=== PATIENT | female | born 1995 | race Caucasian/White ===

== ENCOUNTER 2018-03-02 22:21 | Inpatient (IN) | payer OTHER ==
--- NOTE | 2018-03-02 22:57 | EDPHY ---
H & P Stated Complaint: si etoh - Personal History LMP (Females 10-55): Extended Cycle BCP/Inj Current Tetanus/Diphtheria Vaccine: Yes Current Tetanus Diphtheria and Acellular Pertussis (TDAP): Yes - Medical/Surgical History Hx Asthma: No Hx Chronic Respiratory Disease: No Hx Diabetes: No Hx Cardiac Disease: No Hx Renal Disease: No Hx Cirrhosis: No Hx Alcoholism: No Hx HIV/AIDS: No Hx Splenectomy or Spleen Trauma: No Other PMH: Denies pmh or psh - Social History Smoking Status: Never smoked Time Seen by Provider: 03/02/18 22:32 HPI/ROS: Chief Complaint: Suicidal HPI: 22-year-old woman history depressions presenting intoxicated with suicidal ideation. Patient has a desire to shoot herself. She has a family history of her brother committing suicide 5 years ago. She does not have suicide attempts in the past. She does take Zoloft daily. Admits to drinking several margaritas tonight. Patient states she felt suicidal before she started drinking alcohol. ROS: 10 systems were reviewed and were negative except those elements noted in the HPI. PMH: Depression Social History: No smoking, occasional alcohol, no recreational drug use Family History: non-contributory Physical Exam: Gen: Awake, Alert, No Distress, slurred speech, smells of alcohol HEENT: Nose: no rhinorrhea Eyes: PERRLA, EOMI Mouth: Moist mucosa Neck: Supple, no JVD Chest: nontender, lungs clear to auscultation Heart: S1, S2 normal, no murmur Abd: Soft, non-tender, no guarding Back: no CVA tenderness, no midline tenderness Ext: no edema, non-tender Skin: no rash Neuro: CN II-XII intact, Sensation grossly intact, Strength 5/5 in bilateral upper and lower extremities (Ashok Fernandes) Constitutional: Initial Vital Signs Temperature (C) 37.1 C 03/02/18 22:26 Heart Rate 140 H 03/02/18 22:26 Respiratory Rate 18 03/02/18 22:26 Blood Pressure 149/98 H 03/02/18 22:26 O2 Sat (%) 93 03/02/18 22:26 O2 Delivery Mode Room Air Allergies/Adverse Reactions: No Known Allergies Allergy (Verified 03/02/18 22:25) Home Medications: Medication Instructions Recorded Sertraline HCl [Zoloft 50mg (*)] 50 mg PO DAILY 03/03/18 Medical Decision Making ED Course/Re-evaluation: 22-year-old suicidal patient. Significant alcohol level. Will need sober evaluation in the morning. Patient is otherwise medically cleared. [address] patient [address] out to Dr. Smyth pending sober mental health evaluation. No issues during my care this patient overnight. (Ashok Fernandes) Other Provider: Care assumed at 6:38 a.m. For this patient with suicidal ideation who presents with acute alcohol intoxication. Mental health evaluation was completed and decision for psychiatric admission was made. The patient will be transferred to [facility] for inpatient psychiatric hospital bed not available at this facility, in stable condition; accepting physician is Dr. Elizondo. EMTALA form completed. (Tate Smyth) - Data Points Laboratory Results: Laboratory Results 03/02/18 22:48 03/02/18 22:48 Medications Given: Discontinued Medications Sodium Chloride (Ns) 1,000 mls @ 0 mls/hr IV EDNOW ONE; Wide Open PRN Reason: Protocol Stop: 03/02/18 23:28 Last Admin: 03/02/18 23:27 Dose: 1,000 mls Lorazepam (Ativan) 1 mg PO EDNOW ONE Stop: 03/03/18 14:20 Last Admin: 03/03/18 14:22 Dose: 1 mg Departure - Departure Disposition: [facility] IP Clinical Impression: Suicidal ideation Alcohol intoxication Qualifiers: Complication of substance-induced condition: uncomplicated Qualified Code(s): F10.920 - Alcohol use, unspecified with intoxication, uncomplicated Condition: Good Referrals: Orlando Marin MD [Primary Care Provider] - As per Instructions
[2018-03-02 23:06] LABS: PLATELET COUNT 337 10^3/uL (150-400)
[2018-03-02] MEDS ORDERED: NS 1,000 ML IV ONE (23:27)
--- NOTE | 2018-03-03 13:49 | ASMTTCLDSP ---
TLC Discharge Disposition Disposition: Answers: Admit Disposition Notes: Notes: P to be admitted to [address] Discharge Concerns/Recommendations: Notes: In consultation with ED MD, Dr Tate Smyth and on-call psychiatrist, Delvin Elizondo MD pt appears to meet the 27-65 criteria for in-pt psychiatric history as pt appears to be a danger to self. Was patient given the Answers: Yes Inpatient Behavioral Health Prohibited Belongings List while in the ED? For inpatient Delvin Elizondo MD admission, the following psychiatrist agreed to accept patient for admission to Behavioral Health ([facility]): Date Signed: 03/03/2018 01:48 PM Electronically Signed By:Hanna Thrasher
[2018-03-03] MEDS ORDERED: LORazepam 1 MG TAB PO ONE (14:19)
[2018-03-03] MEDS ORDERED: ACETAMINOPHEN 325 MG TAB PO PRN (16:03)
[2018-03-03] MEDS ORDERED: NICOTINE POLACRILEX 2 MG GUM B PRN (16:03)
[2018-03-03] MEDS ORDERED: OLANZapine DISINTEGR 5 MG TAB PO PRN (16:03)
[2018-03-03] MEDS ORDERED: THIAMINE HCL 100 MG TAB PO ONE (16:04)
[2018-03-03] MEDS ORDERED: MAGNESIUM HYDROXIDE 30 ML UDCUP PO PRN (16:04)
[2018-03-03] MEDS ORDERED: PROMETHAZINE HCL 25 MG SUPPR PR PRN (16:04)
[2018-03-03] MEDS ORDERED: MAG HYDROX/AL HYDROX/SIMETH 30 ML UDCUP PO PRN (16:04)
[2018-03-03] MEDS ORDERED: PROMETHAZINE HCL 25 MG TAB PO PRN (16:04)
[2018-03-03] MEDS ORDERED: chlordiazePOXIDE 25 MG CAP PO PRN (16:04)
--- NOTE | 2018-03-03 16:27 | ASMTTLCEVL ---
TLC Evaluation - Basic Information Evaluation Start Date and 03/03/2018 11:30 AM Time Hospital Status Answers: M1 Hold 72-hr M1 Hold Start Date 03/02/2018 10:55 PM and Time Patient statement Notes: "I got drunk with my friends last night , my mother called and I blurted out mishel tI wanted to - I have been feeling a bit depressed and anxious and haven't really told anyone." Narrative Notes: Pt is a 22 y/o, , single [employer] female who was brought to the ED by her mother after saying that she felt suicidal and thought about killing herself with a gun. (Pt luciano not have access to gun) Her bal was .418 at the time of admission. Pt currently denies suicidal, parasuicidal or homiidal ideation, urges or behaviors though she says she has intermittent suicidal ideation but has no intention of acting on her thoughts. She denies auditory, visual hallucinations or delusions. In speaking with pt's mother she does minimize her drinking - she reports a glass of wine a day since turning 21 but has been drinking much more than that and lying to her mother. She sees a therapist as needed - Jimmy Marcelino who she has been seeing on and off for 5 years. Her PMD prescribed zoloft this past October which pt reports as helping but mother reports that she does not think that pt takes it regularly. Pt denies any other substance use. She has been thinking about her brother who by suiicide at age 22 - 5 yrs ago. Diagnosis History Notes: Pt does not know a specific diagnosis but does report feeling depressed - increased sleep, lack of energy, poor concentration and passive thoughts about suicide. In addition pt's drinking history according to mothr and last night also indicates a possible Alcohol Disorder. Prior suicide attempts Notes: Pt denies Prior hospitalizations Notes: Pt denies Treatment Responses Notes: Pt reports that zoloft and therapy help but she admits to not being totally honest with therapist regarding how she feels. History of violence Notes: None Therapist: Jimmy Marcelino Medications (name, dosage, route, freq uency) Notes: Zoloft Allergies/Reaction Notes: Pt denies Sleep Notes: Pt has been sleeping 12-13 hours per night Appetite Notes: Appetite is "okay" Medical/Surgical history Notes: Pt fractured her L4-5 vertebrae in early adolescence. 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 No other illness reported Substance use history (frequency, intensity, his tory, duration) Notes: Pt reports no substance use but has been "drinking a glass of wine daily since she turned 21. Moth believes she is greatly minimizing amount of alcohol use. Family composition Notes: Parents are alive and retired - live in [place] and [place] Family psychiatric/substance abuse history Notes: Parents are well. Her 22 y/o brothr by suicide 5 yrs ago (gun). Her parents were both adopted so no furthe history is known. Developmental history Notes: Pt grew up in [place] with lder brother and parents. She did well in school and had friends and was active, especially with figure skating. She attended [employer] ([place] for and did well. Was active in [employer] and [employer] and had friends. 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 Work history Notes: NA Notes: NA Legal Notes: NA Christianity/Spiritual Notes: NA Leisure Notes: Netflix,spending time with friends Patient's strengths Answers: Athletic (Please select at least TWO strengths): Intelligent Motivated for Treatment Responsible/Dependable Supportive Family Willingness TLC Evaluation - Mental Status Exam Appearance: Answers: Appropriate Neat Eye Contact: Answers: Good/Direct Affect: Answers: Calm Cheerful Behavior: Answers: Appropriate Cooperative Speech: Answers: Relevant Logical Clear Thought Process: Answers: Organized Oriented Alert Insight: Answers: Poor Judgement: Answers: Fair Depression Answers: Difficulty Concentrating Signs/Symptoms: Diminished Interest Sad Mood Hallucinations: Answers: None Current Stage of Change Answers: Precontemplation Pt reported to have Answers: No suicidal/self-injuring ideation/behavior? Pt reported to have Answers: No aggression/assault ideation/behavior? Pt reported to be making Answers: No aggression/assault threats? Pt exhibits inability to Answers: No care for self/grave disability? Patient has a specific Answers: Yes plan? Pt has access to means to Answers: No execute the plan? Ideation involves Answers: Yes serious/lethal intent? Ideation has Answers: No delusional/hallucinatory content? History of Answers: No suicidal/self-injuring ideation, behavior, or threats? History of Answers: No aggressive/assaultive ideation, behavior, or threats? History of serious Answers: No physical harm to self/others while in treatment setting? TLC Evaluation - Suicide/Homicide Risk Suicide Risk Factors: Answers: Alcohol/Heavy Drug Use Hx of Suicide Attempt by Family Member Major Depression Recent of [employer] School Difficulties Single Homicide/violence risk Answers: None factors: Current Suicidal Answers: No Ideation? Current Suicide Ideation Intermittent - passive SI Frequency: Current Suicidal Ideation Answers: Yes in the Past 48 Hours? Suicide Internal Answers: Absence of Psychosis Protective Factors: Frustration Tolerance Darren with Stress Suicide External Answers: Positive Therapeutic Protective Factors: Relationships Social Support Ranking of patient's Answers: Moderate suicidal risk: TLC Evaluation - Wrap-up BDI Total Score: 31 BDI Question #2 Score: 1 BDI Question #9 Score: 1 BSS Total Score: 12 AXIS I Diagnosis (include DSM-V and ICD-10 codes), must also be entered in [employer], which is the source of truth. Notes: 296.22 (F32.1) Major Depressive Disorder, Single Epsiode, Moderate 303.90 (F10.20) Alcohol Disordr, Moderate Evaluation End Date and 03/03/2018 01:30 PM Time (HH:MM): Date Signed: 03/03/2018 04:26 PM Electronically Signed By:Hanna Thrasher
--- NOTE | 2018-03-04 08:41 | ASMTBHMTP ---
Master Treatment Plan Master Treatment Plan Answers: Depressed Mood with for: Suicidal Ideation Date: 03/03/2018 Diagnosis on Admission: Major Depressive Disorder, Single Epsiode, Moderate 296.22 (F32.1) Expected length of stay: 3-5 days Reason for admission: Notes: Per Report: Pt is a 22 y/o, , single [employer] female who was brought to the ED by her mother after saying that she felt suicidal and thought about killing herself with a gun. (Pt luciano not have access to gun) Her bal was .418 at the time of admission. Pt currently denies suicidal, parasuicidal or homiidal ideation, urges or behaviors though she says she has intermittent suicidal ideation but has no intention of acting on her thoughts. She denies auditory, visual hallucinations or delusions. In speaking with pt's mother she does minimize her drinking - she reports a glass of wine a day since turning 21 but has been drinking much more than that and lying to her mother. She sees a therapist as needed - Jimmy Marcelino who she has been seeing on and off for 5 years. Her PMD prescribed zoloft this past October which pt reports as helping but mother reports that she does not think that pt takes it regularly. Pt denies any other substance use. She has been thinking about her brother who by suiicide at age 22 - 5 yrs ago. Patient's stated presenting problems: Notes: Depression and Anxiety Patient's goals for treatment: Notes: to learn to be self-aware, and better ways of coping with anxiety and depression. Patient's strengths: Notes: smart Identify supports outside of hospital: Notes: Yes, my family Discharge criteria: Notes: Suicidal Ideation will resolve and patient will have a plan to safely manage recurrent suicidal ideation. Initial disposition plan/considerations: Notes: Move in back with my parents. Master Treatment Plan Required Signatures Psychiatrist signature: Answers: Psychiatrist: RN on-shift signature: Answers: RN: Patient signature: Answers: Patient: Date Signed: 03/04/2018 08:40 AM Electronically Signed By:Jan Sanchez
--- NOTE | 2018-03-04 09:19 | GCON ---
DATE OF CONSULTATION: 03/04/2018 The patient is a 22-year-old female with a history of depression, who presented to the ER last cristofer with suicidality in the setting of alcohol intoxication. She was feeling suicidal prior to that. She has a history of depression and takes Zoloft, but has not had previous presentations for suicidal ity. Her brother did kill himself 5 years ago. Her plan was to use a gun, although she does not hav e one at home. She notes that in November after following a bad break-up she had loss of appetite and lost about 15 p ounds. REVIEW OF SYSTEMS: A 10-point review of systems was conducted and negative as noted in the HPI. PAST MEDICAL HISTORY: She had some what sounds like spine stress fractures in the setting of competi tive figure skating. ALLERGIES: No known drug allergies. MEDICATIONS: Zoloft. FAMILY HISTORY: Notable for suicidality. SOCIAL HISTORY: She acknowledges drinking too much alcohol. She does not smoke cigarettes or use dr ugs with a needle. PHYSICAL EXAM: PRESENTING VITAL SIGNS: Temperature 37.1, blood pressure 149/98, pulse 140, breathin g 18 times a minute, 98% on room air. Pulse is now in the 60s. GENERAL: No acute distress. Sclera e anicteric. Oropharynx clear. Mucous membranes moist. NECK: Supple without lymphadenopathy or JV D. LUNGS: Clear to auscultation bilaterally. HEART: S1, S2. ABDOMEN: Soft, nontender, nondisten ded. LOWER EXTREMITIES: No edema. Calves nontender. SKIN: Without rash. NEUROLOGIC: Exam is no nfocal. LABS: Tox screen is negative. Ethanol level is 418. Sodium 143, potassium 4.2, chloride 107, bicar b 21, BUN 9, creatinine 0.7, glucose 149. LFTs normal other than a slightly elevated AST at 47, chol esterol elevated at 242. Beta HCG is negative. There is no TSH. A1c is pending. White count 8.8, hematocrit 45, platelets are 337,000. There is no imaging. I discussed the case with Dr. Tate Smyth. ASSESSMENT AND PLAN: This is a 22-year-old female with suicidality. 1. Suicidality. Management per Behavioral Health. 2. Tachycardia. This is in the setting of presenting to the emergency department with suicidality a nd has resolved without intervention. Recommend no further workup. 3. Elevated liver tests. She has a slightly elevated AST with otherwise normal liver tests. This m ay be the setting of alcohol. Would not follow this as not contributing to her current presentation. 4. Disposition per Behavioral Health. Thank you for this consultation. Hospital Medicine will not follow. Please call for questions. /[id number]/MODL
[2018-03-04] MEDS: MULTIVITAMINS 1 EACH TAB PO SCH (09:22)
[2018-03-04] MEDS: SERTRALINE HCL 50 MG TAB PO SCH (09:22)
[2018-03-04] MEDS: FOLIC ACID 1 MG TAB PO SCH (09:22)
[2018-03-04] MEDS: THIAMINE HCL 100 MG TAB PO SCH (09:22)
--- NOTE | 2018-03-04 10:10 | BAPA ---
DATE OF SERVICE: 03/04/2018 CHIEF COMPLAINT: "I am here because of anxiety and depression. I drank heavily on Sunday and told best jaja friend that I just wanted to ." HISTORY OF PRESENT ILLNESS: From the ED note dated 03/02/18, patient presented to the emergency room with suicidal ideation. Patient reported desire to shoot herself. Patient has a family history of her brother committing suicide 5 years ago. Patient was admitted involuntarily and is on an M1 hold due to being a danger to herself, and is hospitalized for safety, crisis stabilization , and medication evaluation. Patient describes to this HEMATOLOGY TECHNOLOGIST circumstances that led to current hospitalization as increased school stress and thinking about her older brother who committed suicide 5 years ago at age 22. Patient is currently age 22 years. Patient reports to this HEMATOLOGY TECHNOLOGIST current mental health illness as anxiety. Patient reports drinking alcohol prior to presenting to the emergency room. Patient describes this HEMATOLOGY TECHNOLOGIST current psychiatric symptoms as "feeling lost and confused on what to do." Patient describes depression symptoms, including depressed mood, diminished interest and pleasure in activity she typically enjoys. Patient reports she typically enjoys working out and going out with her friends and reports she has not been engaging in these activities lately. Patient reports poor appetite, fatigue, low energy, feelings of hopelessness, and recent suicidal ideation. Patient reports anxiety symptoms including excessive anxiety occurring more days than not. States she finds it difficult to control her worry. Reports feeling restless and keyed up, easily on edge, difficulty concentrating. Patient reports no history of abuse. Patient denies other psychiatric symptoms including symptoms of darell, ADHD, OCD, PTSD, psychosis, and any other symptom of psychiatric disorder. The patient describes to this HEMATOLOGY TECHNOLOGIST current psychiatric symptoms are impacting managing her day-to-day life, described as addressing household responsibilities without difficulty. 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 Patient reports she is currently not socializing, avoiding going out with friends and reports she just wants to stay at home and be in bed. Patient reports she typically enjoys going out with her friends, but has been avoiding this activity. Patient reports she gets along with her family "for the most part." Patient reports her grades have dropped this semester. Reports having 2 D's and 1 F, and reports she was doing well prior to this. Patient reports she does enjoy working out in spin classes, but has recently not been engaged in these activities. With regard to whether patient is generally satisfied with her life, patient states, "for the most part." Patient denies current suicidal ideation. Reports last suicidal ideation was Sunday night. Patient reports protective factors or reasons to live as friends and parents. Patient reports a future goal as to be an major account manager for a [employer]. Patient reports her main support as her parents. Patient denies current homicidal ideation and denies current self-injurious ideation. Patient reports she currently has her medications managed by her primary care provider, Dr. Marin in [place], [place]. Patient reports she also sees therapist Jimmy Marcelino. PAST PSYCHIATRIC HISTORY: The patient describes to this HEMATOLOGY TECHNOLOGIST the following psychiatric history: Patient reports a past diagnosis of anxiety. Reports most recently on Zoloft 50 mg p.o. q. day. Patient reports she started out at 25 mg in October of this year, was titrated to 50 mg, and patient reports she has not taken this medication since December. Patient states she feels like the medication did help with anxiety. Patient reports she has never been hospitalized for inpatient psychiatric treatment. With regard to alcohol withdrawal, patient states she usually gets "the shakes" at 3 p.m. Patient denies history of suicide attempt. Patient reports history of cutting twice in high school. ALLERGIES: No known allergies. CURRENT MEDICATIONS: 1. Sertraline 50 mg p.o. q. day. 2. CIMA protocol medications including thiamin, vitamin B1, Phenergan, and Librium 25 to 50 mg p.o. q.4 hours p.r.n. PAST MEDICAL HISTORY: The patient describes to this HEMATOLOGY TECHNOLOGIST the following. Patient reports she has no reason to believe she could be , is currently on control, Nexplanon. Patient's urine test at time of admission is negative. Patient reports no history of brain disease, traumatic brain injury, or concussions. Patient reports no history of major illnesses or major hospitalizations. SOCIAL HISTORY: The patient describes to this HEMATOLOGY TECHNOLOGIST the following social history. Patient reports she was born in [place], [place], raised the majority of her life in [place], [place], by both parents. Patient reports she currently lives in [place], [place], with 5 roommates and states she plans to move in with her parents soon. Patient reports meeting all her developmental milestones. Reports no history of learning delays or difficulties. Patient describes her sexual orientation as heterosexual. Patient reports she is currently not in a relationship, has never been , and has no children. 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 Patient reports her highest level of education as she is currently a senior at [employer]. Patient denies any history of duty. Patient reports no baptist or spiritual practice. Patient reports no current or history of legal charges or issues. SUBSTANCE USE HISTORY: The patient describes to this HEMATOLOGY TECHNOLOGIST the following substance use history. Patient reports she drinks every day, drinks 2 glasses of wine a night during the week, and reports that on through Sunday she drinks at least a bottle of wine plus mixed drinks while at the bar, and reports drinking approximately 7 to 8 drinks during these nights. Patient reports she uses Adderall "occasionally around ." FAMILY PSYCHIATRIC HISTORY: The patient describes to this HEMATOLOGY TECHNOLOGIST the following family psychiatric history. Patient reports she is unsure of family history of mental illness. Patient reports her brother completed suicide at age 22 five years ago. Patient reports no family history of substance use. ADMISSION LABS AND STUDIES: 1. CBC within normal limits except lymphocytes were elevated at 46.1, eosinophils were low at 0.3, absolute lymphocytes were elevated at 4.052. 2. BMP within normal limits except carbon dioxide was low at 21, anion gap was elevated at 15, and glucose was elevated at 149. 3. Hemoglobin A1c is pending. 4. Liver function within normal limits except AST was elevated at 47. 5. Lipid panel within normal limits except cholesterol was elevated at 242, HDL cholesterol was elevated at 150, LDL/HDL ratio was low at 0.50. 6. Beta HCG qualitative test negative. 7. Toxicology screen negative for all substances screened. Ethyl alcohol level was 418. MENTAL STATUS EXAM: The patient is a well-nourished female looking stated chronological age. Attire is appropriate. Dress is casual, neat and clean. Grooming status is appropriate, neat and clean. Ambulation is independent. Gait is normal and coordinated. Posture is normal and relaxed. Eye contact is appropriate and adequate. Motor activity is appropriate, with purposeful, organized, coordinated movements, with no involuntary movements noted. Attitude is cooperative and friendly. Patient appears attentive, and relates well to this interviewer. Language production is spontaneous. Rate, rhythm, and volume are normal. Articulation is clear. Patient reports mood as "okay," with adequately ranged and congruent affect. Patient's thought process is linear and logical, with no loose associations, tangential thought, thought blocking, concrete thinking, or any other signs of formal thought disorder. Patient does not report suicidal or homicidal thoughts, ideas, or plans. Patient denies auditory or visual hallucinations. Patient denies delusions. Patient does not appear to be attending to internal stimuli. Patient is oriented to person, place, time, and situation. The patient's attention and concentration are adequate. The patient's insight and judgment are poor. There is no evidence of gross cognitive dysfunction at any point during the interview, and no evidence of apparent dysfunction in recent or remote memory noted. The patient does not report undesirable side effects from the current medications. DIAGNOSES: Based on the patient's history and current presentation, patient's diagnoses are: 1. Major depressive disorder, severe, with anxious distress. 2. Alcohol use disorder, severe. 3. Alcohol use binge drinking. 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, living in [place], [place], who presents to the hospital involuntarily due to a risk to harm herself and is currently on an M1 hold. Patient requires continued inpatient care because of current depression and recent suicidal ideation with plan to attempt by gun. Patient presents with problems of increased depression and anxiety that have steadily been increasing over the past several months. Patient's life has been affected by these problems, including the crisis that led to this hospitalization with suicidal ideation with plan. The exacerbation of symptoms was preceded by increased school stressors and patient thinking about the loss of her brother who completed suicide 5 years ago at the age of 22. Patient has a past psychiatric history of anxiety that was treated with Zoloft 50 mg p.o. q. day and patient reports response to that treatment was fair. Patient reports stopping Zoloft in December. Patient reports she stopped Zoloft because she felt like she was doing better. Patient reported no side effects from Zoloft. Patient is a high suicide safety risk due to recent suicidal ideation with plan. Protective factors while hospitalized include ongoing safety checks, active involvement in treatment, and support from our treatment team. Patient could benefit from inpatient hospitalization for safety , crisis stabilization, and medication evaluation. PLAN: 1. Psychotropic medications: After reviewing options, risks, and benefits with the patient, patient agrees to continue current medications. No other medication changes at this time as more time is needed to determine ongoing tolerability and efficacy. Plan is to continue to observe patient for response and side effects from medications, and ongoing monitoring and evaluation. 2. Review with patient informed consent and recommendations for psychotropic medication treatment listed below 3. Labs: no additional labs at this time 4. Therapy: continue milieu and group therapy 5. Further investigation including gathering information from patients relatives and review of past case records to inform treatment plan. 6. Safety/Wellness plan and follow-up outpatient appointments to be established prior to discharge. Next steps are for patient to meet with wound care center consultant to plan a safe discharge plan and establish outpatient services for ongoing treatment. 7. Confer with inpatient treatment team regarding treatment plan. 8. Address psychosocial stressors by meeting with pet care attendant to establish discharge plan including referrals for outpatient services. 9. Legal status: M1 10. Consider discharge on Sunday if patient is in stable condition, safe, and has a safe discharge plan. 11. Substance abuse interventions: ESTIMATED LENGTH OF STAY: 1-3 days PSYCHOTROPIC MEDICATION TREATMENT INFORMED CONSENT and RECOMMENDATIONS: Review nature of condition, diagnosis, and prognosis. Review nature and purpose of psychotropic medication treatment. Review type of psychotropic medications being ordered. Review risk and benefits of psychotropic medication treatment. Review probable length of time will need to take medications. Review risk and benefits of not undergoing psychotropic medication treatment. Review alternative treatments to psychotropic medications. Review psychotropic medications contraindications, drug-drug interactions, side effects, and importance of reporting any side effects to a psychiatric provider or nurse during inpatient hospitalization, and upon discharge to patients psychiatric outpatient provider, primary care provider, or other health child caregiver private home. Review importance of asking a nurse, psychiatric provider, or primary care provider any questions or problems concerning the psychotropic medications. Verify patient understands the information that has been provided, and understands, accepts, and agrees to psychotropic medications. Review patients safety plan and importance of patient to communicate to staff while hospitalized if patient is ever a danger to self/others, or unable to care for self, and upon discharge, the importance for patient to contact [facility] or [facility], or go to the nearest emergency room, if patient is ever a danger to self/others, or unable to care for self. Recommend that upon discharge patient establish medication management treatment with a psychiatric provider, establishes routine therapy appointments, and follow-up with primary care provider. Verify patient understands and agrees to these recommendations. /[id number]/MODL MTDD
--- NOTE | 2018-03-04 11:29 | ASMTCMCOM ---
CM Note CM Note Notes: CC reached out for follow up appts for client, waiting to hear back. Clt was able to attend treatment rounds today. Client is aware of mental health issues; however, minimizes any Alcohol issue or problem. Provided client with additional resources, ,etc. Client presents alert, affect is appropriate towards situation. Date Signed: 03/04/2018 11:28 AM Electronically Signed By:Jan Sanchez
[2018-03-04] MEDS ORDERED: BISMUTH SUBSALICYLATE 524 MG/30 ML UDL PO PRN (13:18)
[2018-03-04] MEDS: IBUPROFEN 200 MG TAB PO PRN (14:47)
--- NOTE | 2018-03-05 08:44 | SOAPPROG ---
SOAP Progress Note Assessment/Plan: Assessment: Major Depressive Disorder, Severe, with Anxious Distress. Alcohol Use Disorder , Severe. Binge Drinking. Improvement noted. (see subjective/objective note). Patient could benefit from continued inpatient hospitalization for crisis stabilization, safety, and medication evaluation. Consider discharge tomorrow if patient is stable and has a safe discharge plan. Plan: 1. Psychotropic medications: After reviewing options, risks, and benefits patient agrees to continue current medications. No medication changes at this time as more time is needed to determine ongoing tolerability and efficacy. Plan is to continue to observe patient for response and side effects from medications, and ongoing monitoring and evaluation. 2. Review with patient informed consent and recommendations for psychotropic medication treatment listed below 3. Labs: no additional labs at this time 4. Therapy: continue milieu and group therapy 5. Further investigation including gathering information from patients relatives and review of past case records to inform treatment plan. 6. Safety/Wellness plan and follow-up outpatient appointments to be established prior to discharge. Next steps are for patient to meet with home care coordinator to plan a safe discharge plan and establish outpatient services for ongoing treatment. 7. Confer with inpatient treatment team regarding treatment plan. 8. Psychosocial stressors addressed through case maker 9. Legal status: M1 10. Consider discharge on Sunday if patient is in stable condition, safe, and has a safe discharge plan. 11. Substance abuse interventions: alcohol PSYCHOTROPIC MEDICATION TREATMENT INFORMED CONSENT and RECOMMENDATIONS: Review nature of condition, diagnosis, and prognosis. Review nature and purpose of psychotropic medication treatment. Review type of psychotropic medications being ordered. Review risk and benefits of psychotropic medication treatment. Review probable length of time patient will need to take medications. Review risk and benefits of not undergoing psychotropic medication treatment. Review alternative treatments to psychotropic medications. Review psychotropic medications contraindications, drug-drug interactions, side effects, and importance of reporting any side effects to a psychiatric provider or nurse during inpatient hospitalization, and upon discharge to patients psychiatric outpatient provider, primary care provider, or other health zoo caretaker. Review importance of asking a nurse, psychiatric provider, or primary care provider any questions or problems concerning the psychotropic medications. Verify patient understands the information that has been provided, and understands, accepts, and agrees to psychotropic medications. Review patients safety plan and importance of patient to report to staff while hospitalized if patient is ever a danger to self/others, or unable to care for self, and upon discharge, the importance for patient to contact [facility] or 911, or go to the nearest emergency room, if patient is ever a danger to self/others, or unable to care for self. Recommend that upon discharge patient establish medication management treatment with a psychiatric provider, establishes routine therapy appointments, and follow-up with primary care provider. Verify patient understands and agrees to these recommendations. 03/05/18 08:44 Subjective: Following up with patient for evaluation of depression, anxiety, and safety. Patient reports, "Going pretty good. Better than before. My mom got me the AA book. She is going with me to an AA meeting after I discharge." Patient expresses the following psychiatric symptoms a little anxious. Patient reports taking medications as prescribed, and describes response to medications as fair. Patient does not report undesirable side effects from the medications, and agrees to continue current medications. Patient describes getting 8 hours of sleep, and reports feeling rested. Objective: Vital Signs Temp Pulse Resp BP Pulse Ox 36.9 C 74 17 118/74 96 03/04/18 12:00 03/04/18 19:40 03/04/18 19:40 03/04/18 19:40 03/04/18 19:40 NURSING REPORT: Consulted with nursing for update on patients progress in treatment. Nurses report patient is engaged in treatment, is attending groups, slept 8 hours, expresses the following psychiatric symptoms: anxious, exhibits the following psychiatric symptoms: none, is not eating all meals, is agreeable to medications and taking as prescribed with no report of side effects, with no s/s of EPS/akathisia, and denies SI/HI, denies A/V hallucinations, and denies delusions. MSE: The patient presents casually dressed and with good hygiene, and looks stated age. Patient is sitting, posture is upright, and position is relaxed. Patient appears awake, alert, and responds appropriately and reasonably during interview. Patient is engaged, relates well to interviewer, and emotional facial expression is appropriate to situation and changes appropriately with topic. Patient is cooperative, makes comfortable eye contact, and movements are voluntary, deliberate, coordinated, and smooth and even with no inappropriate movements. Patient makes laryngeal sounds effortlessly and shares conversation appropriately; pace of conversation is appropriate, and stream of talking is fluent; articulation is clear and understandable; word choice is effortless and appropriate for education level; completes sentences, occasionally pausing to think; rate and volume are appropriate for interview and setting. Patient reports mood as anxious. Patients affect is stable with full variable range, congruent with mood, and appropriate to speech and circumstances. Patient has linear and logical thinking, with no loose associations, tangential thought, thought blocking, concrete thinking, or any other signs of formal thought disorder. Patient denies suicidal and homicidal ideation, and denies hallucinations and delusions. Patient appears to be a reliable historian with sound judgement and good insight into current condition. Patient has no apparent dysfunction in recent or remote memory noted , and no evidence of gross cognitive dysfunction noted at any point during the interview. SUBSTANCE ABUSE BRIEF INTERVENTION: Brief intervention regarding the risks of alcohol abuse is provided to patient with goal to reduce the risk of harm that could result from the continued use of alcohol, with the general aim to investigate the problem, raise awareness of problem, develop a solution with the patient, recommend a specific change or activity, and motivate the patient toward change. Assess substance abuse behavior and give supportive advice about harm reduction, recommend a reduction in hazardous/at-risk consumption patterns, and facilitate referrals for additional specialized treatment with skin care technician. Intermediate goal is for the patient to quit and attend outpatient substance abuse treatment. Intervention focus on intermediate goals to allow for more immediate success in the treatment process to keep the patient motivated. Review following with patient: Alcohol/Binge Drinking Risks : Short-term: injuries, violence, alcohol poisoning, risky sexual behaviors. Long-term: high blood pressure, stroke, liver disease, digestive problems, cancer, learning and memory problems, depression and anxiety, social problems, and alcohol dependence. OUTPATIENT SUBSTANCE ABUSE TREATMENT: Patient referred to outpatient provider and treatment for continued treatment related to substance abuse. - Time Spent With Patient Time Spent With Patient: 15 minutes, met with patient individually. - Pending Discharge Pending Discharge Within 24 Hours: Yes Pending Discharge Within 48 Hours: No Pending Discharge Date: 03/06/18 Pending Discharge Time: 11:00 ICD10 Worksheet Patient Problems: Problems Problem Status Onset Alcohol consumption binge drinking Acute Alcohol use disorder, severe, dependence Acute Major depressive disorder, recurrent episode, severe with anxious distress Chronic
[2018-03-05] MEDS: FOLIC ACID 1 MG TAB PO SCH (08:51)
[2018-03-05] MEDS: THIAMINE HCL 100 MG TAB PO SCH (08:51)
[2018-03-05] MEDS: IBUPROFEN 200 MG TAB PO PRN (08:51)
[2018-03-05] MEDS: MULTIVITAMINS 1 EACH TAB PO SCH (08:51)
[2018-03-05] MEDS: SERTRALINE HCL 50 MG TAB PO SCH (08:51)
--- NOTE | 2018-03-05 10:53 | ASMTBHDC ---
Notes Note: Notes: CC was able to confirm client's out-patient follow up: Follow up with: Shannan [place]: [facility], [address] [facility], [place] [address] Next Appt: SundayMarch 08 (03/08/18) at 9am with Peggy Kimbrough LCSW. Jimmy Tom Marcelino MA, BATTERY PLATE REMOVER [address] [place] [address] Next Appt: March 06 (03/06/18) at 12:30pm. [facility] [address] [place] [address] Next Appt: March 14 (03/14/18) at 10:45am. Bring all discharge ppw Date Signed: 03/05/2018 10:52 AM Electronically Signed By:Jan Sanchez
[2018-03-06 06:42] VITALS: BP 117/72
--- NOTE | 2018-03-06 08:44 | BDS ---
REASON FOR ADMISSION: From the ED note dated 03/02/2018, the patient presented to the emergency room intoxicated with suicidal ideation. The patient reported a desire to shoot herself. The patient has a family history of her brother completing suicide 5 years ago. The patient was admitted involuntarily on an M1 hold due to being a danger to herself. The patient was admitted for safety, crisis stabilization, and medication management. ADMITTING DIAGNOSES: 1. Major depressive disorder, recurrent episode, severe, with anxious distress. 2. Alcohol consumption, binge drinking. 3. Alcohol use disorder, severe dependence. ADMISSION PHYSICAL EXAM: The patient was seen for internal medicine consultation on 03/04/2018, for medical clearance for inpatient psychiatric hospitalization and treatment. The patient was medically cleared for inpatient psychiatric hospitalization and treatment. For further details, please refer to consultation note dated 03/04/2018. ADMISSION LABS: 1. CBC within normal limits except lymphocytes were elevated at 46.1, eosinophils were low at 0.3, absolute lymphocytes were elevated at 4.05. 2. BMP within normal limits except carbon dioxide was low at 21. Anion gap was elevated at 15. Glucose elevated at 149. 3. Hemoglobin A1c within normal limits at 4.9. 4. Liver function within normal limits except AST was elevated at 47. 5. Lipid panel within normal limits except cholesterol was elevated at 242, HDL cholesterol was elevated at 150. LDL/HDL ratio was low at 0.50. 6. Beta HCG qualitative test was negative. 7. Toxicology screen negative for all substances screened. Ethyl alcohol level was 418. MAJOR PROCEDURES OR TESTS: None. HOSPITAL COURSE: The most prominent symptoms and behaviors while the patient was here were reports of severe anxiety and depression. Treatment modalities utilized were milieu and group therapy. Zoloft 50 mg p.o. daily was started to target mood symptoms, was tolerated with no report of side effects. The patient was placed on CIWA protocol during the course of her hospitalization to monitor potential alcohol withdrawal closely. CIWA was eventually stopped as patient was showing no signs or symptoms of alcohol withdrawal. The patient has improved considerably with no signs of psychiatric symptoms and no psychiatric symptoms expressed at time of discharge. The patient reports she has improved since admission. States to be in stable condition, feels safe to discharge, and she contracts for safety. Patient's response to treatment was good. There were no adverse or unexpected results of treatment. The patient was safe throughout her stay, active in treatment, engaged in groups, and was appropriate with staff and other patients. The patient met with the treatment team prior to discharge to assess readiness for discharge and reviewed discharge plan. The treatment team consensus is the patient is in stable condition, has a safe discharge plan, and is ready to discharge today. CONDITION AT DISCHARGE: Patient is in stable condition and is no longer a danger to self or others, and is not gravely disabled due to mental illness. Patient is no longer in need of inpatient level of care, and can be safely and effectively treated within the community. The patients level of risk at time of discharge is low. MSE: The patient is casually dressed and with good hygiene , and looks stated age. Patient is sitting, posture is upright, and position is relaxed. Patient appears awake, alert, and responds appropriately and reasonably during interview. Patient is engaged, relates well to interviewer, and emotional facial expression is appropriate to situation and changes appropriately with topic. Patient is cooperative, makes comfortable eye contact , and movements are voluntary, deliberate, coordinated, and smooth and even with no inappropriate movements. Patient makes laryngeal sounds effortlessly and shares conversation appropriately; pace of conversation is appropriate, and stream of talking is fluent; articulation is clear and understandable; word choice is effortless and appropriate for education level; completes sentences, occasionally pausing to think; rate and volume are appropriate for interview and setting. Patient reports mood as euthymic. Patients affect is stable with full variable range, congruent with mood, and appropriate to speech and circumstances. Patient has linear and logical thinking, with no loose associations, tangential thought, thought blocking, concrete thinking, or any other signs of formal thought disorder. Patient denies suicidal and homicidal ideation, and denies hallucinations and delusions. Patient appears to be a reliable historian with sound judgement and good insight into current condition. Patient has no apparent dysfunction in recent or remote memory noted , and no evidence of gross cognitive dysfunction noted at any point during the interview. DISCHARGE DIAGNOSES: 1. Major depressive disorder, recurrent episode, severe, with anxious distress. 2. Alcohol consumption, binge drinking. 3. Alcohol use disorder, severe dependence. CURRENT MEDICATIONS: After reviewing options, risks, and benefits with the patient, the patient agrees to continue: 1. Zoloft 50 mg p.o. daily. 2. Thiamine vitamin B1 100 mg p.o. daily. 3. Multivitamin 1 each p.o. daily. 4. Folic acid 1 mg p.o. daily. 5. Motrin 400 mg p.o. q.6 hours p.r.n. 6. Tylenol 650 mg p.o. q.4 hours p.r.n. 7. The patient requests prescription for Zoloft at time of discharge. Prescription for 30 days is provided. The prescription is reviewed with the patient at time of discharge to ensure accuracy and patient understanding. DISPOSITION: The patient left hospital independently and voluntarily with her mother after a family meeting with this [employer] INTERVIEWER and career services assistant. FOLLOWUP: buildings and grounds coordinator reports the appropriate outpatient follow-up services have been established and outpatient appointments have been scheduled. The patient received written instructions with times and dates of outpatient follow-up appointments. The following follow-up recommendations were provided to the patient at discharge: Continue psychotropic medications as prescribed and attend appointments as scheduled. Report any side effects to a psychiatric outpatient provider, a primary care provider, or other health early breastfeeding care specialist. Address any questions or problems concerning the psychotropic medications with a psychiatric outpatient provider, a primary care provider, or other health early breastfeeding care specialist. Contact [facility] or [facility], or go to the nearest emergency room, if you are ever a danger to yourself/others, or unable to care for yourself. As soon as possible, establish a routine medication management treatment with a psychiatric provider, establish routine therapy appointments, and follow-up with a primary care provider. LEGAL COURSE: The patient was admitted on an M1 hold for involuntary inpatient psychiatric hospitalization. The patient became voluntary during her stay and patient discharged today independently and voluntarily. ATTITUDE AT TIME OF DISCHARGE: The patients attitude was positive at time of discharge, and patient reports looking forward to discharging today. The patient reports she feels safe to discharge, is no longer a danger to herself or others, is in stable condition, and contracts for safety. Patient states she will continue medications as prescribed, and establish medication management treatment with an outpatient provider after discharge. Patient reports she understands the information that has been provided to her, and she understands, accepts, and agrees to psychotropic medications. Patient describes internal protective factors as the coping skills she has learned while hospitalized here, and she plans to continue to practice these coping skills after discharge. LABS AND STUDIES: There were no pending labs or studies at time of discharge. ADVANCE DIRECTIVES: There were no advance directives on file, and patient was full code during this hospitalization. The following psychotropic medication treatment informed consent and recommendations were provided to the patient at time of discharge. Patient reports she understands, accepts, and agrees to the information that has been provided. PSYCHOTROPIC MEDICATION TREATMENT INFORMED CONSENT and RECOMMENDATIONS: Review nature of condition, diagnosis, and prognosis. Review nature and purpose of psychotropic medication treatment. Review type of psychotropic medications being prescribed. Review risk and benefits of psychotropic medication treatment. Review probable length of time will need to take medications. Review risk and benefits of not undergoing psychotropic medication treatment. Review alternative treatments to psychotropic medications. Review psychotropic medications contraindications, side effects, and importance of reporting any side effects to a psychiatric provider, primary care provider, or other health early breastfeeding care specialist. Review importance of her asking a psychiatric provider or primary care provider any questions or problems concerning the psychotropic medications. Review importance of reporting to a psychiatric provider, primary care provider, or other health early breastfeeding care specialist if she plans to or becomes . Review safety plan and the importance to contact [facility] or [facility] , or go to the nearest emergency room, if ever a danger to yourself/others, or unable to care for yourself. Recommend upon discharge to establish routine medication management treatment with a psychiatric provider, establish routine therapy appointments, and follow-up with a primary care provider. Verify patient understands, accepts, and agrees to the information that has been provided. SUICIDE ASSESSMENT FIVE-STEP EVALUATION AND TRIAGE (1) RISK FACTORS: (a) Suicidal behavior: none (b) Current/past psychiatric disorders: Major Depressive Disorder, Alcohol Use Disorder, Severe. (c) Casey symptoms: none expressed or exhibited at time of discharge (d) Family history: brother completed suicide 5 years ago (e) Precipitants/Stressors/Interpersonal: none (f) Change in treatment: discharge from psychiatric hospital (g) Access to firearms: none (2) PROTECTIVE FACTORS: (a) Internal: coping skills learned while hospitalized (b) External: family, friends, and future (3) SUICIDAL INQUIRY: (a) Ideation: none (b) Plan: none (c) Behaviors: none; patient was safe throughout stay with no suicidal or parasuicidal behaviors (d) Intent: none (4) RISK LEVEL: Low: modifiable risk factors, strong protective factors; no suicidal or self-injurious ideation. Intervention: treatment plan to reduce symptoms including medications and therapy, provided emergency/crisis numbers, and established follow-up plan. /[id number]/MODL MTDD
[2018-03-06] MEDS: SERTRALINE HCL 50 MG TAB PO SCH (09:28)
[2018-03-06] MEDS: FOLIC ACID 1 MG TAB PO SCH (12:21)
[2018-03-06] MEDS: THIAMINE HCL 100 MG TAB PO SCH (12:22)
[2018-03-06] MEDS: MULTIVITAMINS 1 EACH TAB PO SCH (12:22)
== END 2018-03-06 12:07 | disposition home or self-care (01) | DRG 885 ==
LOC: BBEH 03-03 15:25
PROVIDERS: ADMIT Psychiatry & Neurology Psychiatry; ATTEND Psychiatry & Neurology Psychiatry
DX: F33.2 Major depressive disorder, recurrent severe without psychotic features (principal); R45.851 Suicidal ideations; F10.229 Alcohol dependence with intoxication, unspecified; F41.8 Other specified anxiety disorders
CPT/HCPCS: 80305; G0480